=== PATIENT | female | born 1995 | race Caucasian/White ===

== ENCOUNTER 2020-07-04 21:54 | Inpatient (IN) | payer MEDICAID, OTHER ==
[~2020-07-04] VITALS: Ht 157.5 cm; Wt 71.2 kg
[2020-07-04 22:55] LABS: BASOPHILS % 0.4 % (0.0-2.0); EOSINOPHILS % 1.4 % (0.0-5.0); HEMATOCRIT. 38.2 % (36.0-48.0); HEMOGLOBIN. 13.2 g/dL (12.0-16.0); LYMPHOCYTES % 34.1 % (20.0-50.0); MEAN CORPUSCULAR HEMOGLOBIN 30.1 pg (28.0-32.0); MEAN CORPUSCULAR VOLUME 87.3 fL (81.0-99.0); MEAN PLATELET VOLUME 9.1 fl (7.4-10.4); MONOCYTES % 8.2 % (2.0-8.0); NEUTROPHILS % 55.9 % (40.0-76.0); PLATELET 168 x1000/uL (130-400); RED BLOOD CELL COUNT 4.38 mill/uL (4.2-5.4); RED CELL DISTRIBUTION WIDTH 12.6 % (11.6-14.6)
[2020-07-04 23:00] LABS: CHLORIDE 105 mEq/L (98-107)
[2020-07-04 23:05] LABS: ETHANOL BLOOD < 10 mg/dL; PROTHROMBIN TIME 10.9 sec (9.6-11.0)
[2020-07-04 23:08] LABS: LDL CHOLESTEROL 104 mg/dL (5-100)
[2020-07-04] MEDS ORDERED: CONTAINER EMPTY IV NR (23:15)
[2020-07-04] MEDS ORDERED: ALTEPLASE IV NR (23:15)
[2020-07-04] MEDS ORDERED: ALTEPLASE 100MG/VIAL IV NR (23:15)
[2020-07-04 23:17] LABS: HCG SCREEN NEGATIVE
[2020-07-04] MEDS ORDERED: IOHEXOL-350 100 ML BOTTLE ONE (23:21)
[2020-07-04 23:26] LABS: CLARITY URINE CLEAR (CLEAR); COLOR URINE YELLOW (YELLOW); KETONES URINE NEGATIVE (NEGATIVE); LEUKOCYTE ESTERASE URINE NEGATIVE (NEGATIVE); NITRITE URINE NEGATIVE (NEGATIVE); OCCULT BLOOD URINE NEGATIVE (NEGATIVE); PROTEIN URINE NEGATIVE (NEGATIVE); SPECIFIC GRAVITY URINE 1.052 (1.005-1.030)
[2020-07-04] MEDS ORDERED: *NO ASPIRIN X 24 HOURS XX SCH (23:45)
[2020-07-05] VITALS (15 sets, daily range): BP systolic 91–116; BP diastolic 47–79
[2020-07-05] MEDS ORDERED: ACETAMINOPHEN 325MG TABLET PO PRN (04:00)
[2020-07-05] MEDS ORDERED: GUAIFENESIN 200MG/10ML SUGAR FREE UDC PO PRN (04:00)
[2020-07-05] MEDS ORDERED: HYDROCODONE/ACETAMINOPHEN 5/325MG TABLET PO PRN (04:00)
[2020-07-05] MEDS ORDERED: DOCUSATE SODIUM 100MG CAPSULE PO PRN (04:00)
[2020-07-05] MEDS ORDERED: ONDANSETRON HCL 4MG/2ML INJ IV PRN (04:00)
[2020-07-05] MEDS ORDERED: MAGNESIUM/ALUMINUM HYDROXIDE/SIMETHICONE 30ML UDC PO PRN (04:00)
[2020-07-05] MEDS: SODIUM CHLORIDE 0.45% 1,000 ML IV SCH ×2 (04:49→18:18)
[2020-07-05 05:58] LABS: BASOPHILS % 0.3 % (0.0-2.0); EOSINOPHILS % 1.4 % (0.0-5.0); HEMATOCRIT. 38.1 % (36.0-48.0); HEMOGLOBIN. 13.1 g/dL (12.0-16.0); LYMPHOCYTES % 39.8 % (20.0-50.0); MEAN CORPUSCULAR HEMOGLOBIN 30.1 pg (28.0-32.0); MEAN CORPUSCULAR VOLUME 87.4 fL (81.0-99.0); MEAN PLATELET VOLUME 9.1 fl (7.4-10.4); MONOCYTES % 7.4 % (2.0-8.0); NEUTROPHILS % 51.1 % (40.0-76.0); PLATELET 197 x1000/uL (130-400); RED BLOOD CELL COUNT 4.35 mill/uL (4.2-5.4); RED CELL DISTRIBUTION WIDTH 12.4 % (11.6-14.6)
[2020-07-05 06:04] LABS: CHLORIDE 107 mEq/L (98-107)
[2020-07-05 06:11] LABS: LDL CHOLESTEROL 110 mg/dL (5-100)
[2020-07-05 06:13] LABS: CREATINE KINASE 50 IU/L (26-192)
[2020-07-05 06:16] LABS: CREATINE KINASE MB FRACTION < 1.0 ng/mL (0.5-3.6)
[2020-07-05 07:51] LABS: *AMPHETAMINES SCREEN URINE NEGATIVE (NEGATIVE); *BARBITURATES SCREEN URINE NEGATIVE (NEGATIVE); *BENZODIAZEPINES SCREEN URINE NEGATIVE (NEGATIVE); *COCAINE SCREEN URINE NEGATIVE (NEGATIVE)
[2020-07-05 07:52] LABS: CANNABINOID URINE SCREEN NEGATIVE (NEGATIVE); METHADONE URINE SCREEN NEGATIVE (NEGATIVE); OPIATES URINE SCREEN NEGATIVE (NEGATIVE); PHENCYCLIDINE URINE SCREEN NEGATIVE (NEGATIVE)
[2020-07-05] MEDS ORDERED: POTASSIUM CHLORIDE 20MEQ TABLET SR PO SCH (10:00)
[2020-07-05] MEDS ORDERED: ATORVASTATIN CALCIUM 40MG TABLET PO SCH (21:00)
[2020-07-06 04:00] VITALS: BP 93/49
[2020-07-06 08:00] VITALS: BP 92/52
[2020-07-06] MEDS: SODIUM CHLORIDE 0.45% 1,000 ML IV SCH (08:14)
[2020-07-06 12:00] VITALS: BP 97/46
[2020-07-06 12:56] VITALS: BP 97/42
[2020-07-07 19:06] LABS: HLA CLASS 1 ANTIBODY Negative (Negative); IIb/IIIa ANTIBODY Negative (Negative); Ia/IIa ANTIBODY Negative (Negative); Ib/IX ANTIBODY Negative (Negative)
[2020-07-08 09:06] LABS: DRVVT LA 39.4 sec (0.0-47.0); PTT-LA 41.7 sec (0.0-51.9)
[2020-07-08 13:06] LABS: LUPUS ANTICOAG INTERPRETATION Comment: (.)
== END 2020-07-06 16:31 | disposition home or self-care (01) | DRG 861 ==
LOC: ER 21:54 → CVICU 07-05 00:33 → EDBEDREQSVC 07-05 00:35 → EDBEDREQDT 07-05 00:35 → EDBEDREQ 07-05 00:35 → EDBEDREQTM 07-05 00:35 → ENRESERV 07-05 01:35 → 8WST 07-05 19:35
PROVIDERS: ADMIT Hospitalist; ATTEND Hospitalist
DX: R53.1 Weakness (principal); G43.109 Migraine with aura, not intractable, without status migrainosus; E78.5 Hyperlipidemia, unspecified
CPT/HCPCS: 36415; 70496; 70498; 70551; 71045; 80053; 80061; 80305; 80320; 81003; 81403; 81407; 81479; 82550; 82553; 82962; 83721; 84484; 84703; 85025; 85613; 85732; 86022; 93005; 93880; 97116; 97161; 99291; J2997; J7060; Q9967; G0480

== ENCOUNTER 2022-04-25 22:49 | Emergency (ER) | payer MEDICAID ==
[~2022-04-25] VITALS: Ht 149.9 cm; Wt 73.4 kg
[2022-04-25 23:04] VITALS: BP 118/74
[2022-04-25 23:16] LABS: BASOPHILS % 0.2 % (0.0-2.0); EOSINOPHILS % 0.9 % (0.0-5.0); HEMATOCRIT. 36.5 % (36.0-48.0); HEMOGLOBIN. 12.7 g/dL (12.0-16.0); LYMPHOCYTES % 30.1 % (20.0-50.0); MEAN CORPUSCULAR HEMOGLOBIN 30.2 pg (28.0-32.0); MEAN CORPUSCULAR VOLUME 86.7 fL (81.0-99.0); MEAN PLATELET VOLUME 8.9 fl (7.4-10.4); MONOCYTES % 6.2 % (2.0-8.0); NEUTROPHILS % 62.6 % (40.0-76.0); PLATELET 190 x1000/uL (130-400); RED BLOOD CELL COUNT 4.21 mill/uL (4.2-5.4); RED CELL DISTRIBUTION WIDTH 12.5 % (11.6-14.6)
[2022-04-25 23:23] LABS: CHLORIDE 108 mEq/L (98-107)
[2022-04-25 23:45] LABS: CLARITY URINE CLEAR (CLEAR); COLOR URINE YELLOW (YELLOW); KETONES URINE TRACE (NEGATIVE); LEUKOCYTE ESTERASE URINE TRACE (NEGATIVE); NITRITE URINE NEGATIVE (NEGATIVE); OCCULT BLOOD URINE NEGATIVE (NEGATIVE); PROTEIN URINE NEGATIVE (NEGATIVE); SPECIFIC GRAVITY URINE 1.022 (1.005-1.030)
[2022-04-25 23:45] LABS: B-HCG QUANTITATIVE 42590 mIU/mL (<3)
[2022-04-26] MEDS ORDERED: FAMOTIDINE 20MG TABLET PO ONE (01:45)
[2022-04-26] MEDS ORDERED: MAGNESIUM/ALUMINUM HYDROXIDE/SIMETHICONE 30ML UDC PO ONE (01:45)
[2022-04-26] MEDS ORDERED: FAMO-135 MT (02:35)
[2022-04-26] MEDS ORDERED: MAG355OR21 MT (02:35)
== END 2022-04-26 02:42 | disposition home or self-care (01) ==
LOC: ER 22:49
DX: O26.891 Other specified pregnancy related conditions, first trimester (principal); R10.13 Epigastric pain; Z3A.12 12 weeks gestation of pregnancy; E87.6 Hypokalemia; K76.0 Fatty (change of) liver, not elsewhere classified
CPT/HCPCS: 36415; 76705; 76801; 80053; 81003; 81025; 84702; 85025; 99284

== ENCOUNTER 2024-03-03 00:29 | Emergency (ER) | payer MEDICAID ==
[~2024-03-03] VITALS: Ht 149.9 cm; Wt 73.0 kg
[~2024-03-03 00:29] MED LIST: FAMO-135 MT; MAG355OR21 MT
[2024-03-03 00:49] VITALS: O2SAT 99
[2024-03-03] MEDS: BACITRACIN ZINC OINT UDPKT TOP ONE (02:13)
[2024-03-03] MEDS: LIDOCAINE HCL/PF 1% 10 MG/ML 5ML VIAL INFIL ONE (02:13)
[2024-03-03] MEDS: TETANUS, DIPHTHERIA, PERTUSSIS VAC/PF 0.5ML (>10YR OLD) IM ONE (02:15)
[2024-03-03] MEDS ORDERED: SULF1TAB48 MT (02:33)
[2024-03-03] MEDS ORDERED: NEOM28.43 TP (02:33)
[2024-03-03] MEDS ORDERED: CEPH500T MT (02:33)
[2024-03-03] MEDS: SULFAMETHOXAZOLE/TRIMETHOPRIM 800/160MG TABLET PO ONE (02:45)
[2024-03-03] MEDS: CEPHALEXIN 250MG CAPSULE PO ONE (02:45)
[2024-03-03 03:42] VITALS: BP 112/82; PULSE 104; RESP 18; TEMP 98.7
== END 2024-03-03 03:20 | disposition home or self-care (01) ==
LOC: ER 00:29
DX: L03.011 Cellulitis of right finger (principal)
CPT/HCPCS: 90715; 10060; 90471; 99283; J3490; Z7610 ×2